=== PATIENT | male | born 1990 | race American Indian/Alaskan Native ===

== ENCOUNTER 2022-03-08 17:59 | Emergency (ER) | payer SELFPAY ==
--- NOTE | 2022-03-09 00:24 | Emergency Department Report ---
ED Head Trauma HPI - General Chief complaint: Fall Stated complaint: HIT HEAD ON CONCRETE/SEIZURE/FOAMING AT MOUTH Time Seen by Provider: 03/09/22 00:10 Source: patient Mode of arrival: Ambulatory Limitations: No Limitations - History of Present Illness Initial comments: Patient is a 31-year-old male brought in by EMS for evaluation of head injury followed by seizure-like activity. He was reportedly unloading a [employer] truck and fell backwards striking the back of his head. He has no past history of seizures. - Related Data Home Medications Medication Instructions Recorded Confirmed Last Taken No Known Home Medications [No 05/12/16 05/12/16 Unknown Reported Home Medications] Allergies/Adverse reactions: Allergies Allergy/AdvReac Type Severity Reaction Status Date / Time No Known Allergies Allergy Unverified 05/11/16 17:13 ED Review of Systems ROS: Stated complaint: HIT HEAD ON CONCRETE/SEIZURE/FOAMING AT MOUTH Other details as noted in HPI Constitutional: denies: chills, fever Respiratory: denies: cough, shortness of breath, wheezing Cardiovascular: denies: chest pain, palpitations Gastrointestinal: denies: abdominal pain, nausea, diarrhea Genitourinary: denies: urgency, dysuria Musculoskeletal: denies: back pain, joint swelling, arthralgia Skin: denies: rash, lesions Neurological: denies: headache, weakness, paresthesias Psychiatric: denies: anxiety, depression ED Past Medical Hx - Past Medical History Previous Medical History?: Yes Additional medical history: hearing loss,DEV, Delayed - Surgical History Past Surgical History?: No - Social History Smoking Status: Never Smoker Substance Use Type: None - Medications Home Medications: Home Medications Medication Instructions Recorded Confirmed Last Taken Type No Known Home Medications [No 05/12/16 05/12/16 Unknown History Reported Home Medications] ED Physical Exam - General Limitations: No Limitations General appearance: alert, in no apparent distress - Head Head exam: Present: normocephalic, other (Small area of swelling to) - Respiratory Respiratory exam: Present: normal lung sounds bilaterally. Absent: respiratory distress - Cardiovascular Cardiovascular Exam: Present: regular rate, normal rhythm, normal heart sounds - GI/Abdominal GI/Abdominal exam: Present: soft. Absent: distended, tenderness - Neurological Exam Neurological exam: Present: alert, oriented X3 - Psychiatric Psychiatric exam: Present: normal affect, normal mood - Skin Skin exam: Present: warm, dry, intact, normal color ED Course Vital Signs 03/08/22 03/09/22 03/09/22 19:09 00:00 00:09 Temperature 98.1 F Pulse Rate 67 Respiratory 20 17 Rate Blood Pressure Blood Pressure 120/74 [Right] O2 Sat by Pulse 100 98 Oximetry 03/09/22 03/09/22 03/09/22 00:16 00:30 00:46 Temperature Pulse Rate 45 L 51 L 50 L Respiratory 15 17 Rate Blood Pressure 109/65 109/65 69/32 Blood Pressure [Right] O2 Sat by Pulse 99 100 Oximetry 03/09/22 03/09/22 01:00 01:13 Temperature Pulse Rate 49 L 51 L Respiratory 16 16 Rate Blood Pressure 69/32 Blood Pressure 104/55 [Right] O2 Sat by Pulse 98 98 Oximetry - Medical Decision Making CT head and C-spine unremarkable. Suspect likely concussion. Patient is currently alert and in no acute distress. Stable for discharge home. Critical care attestation.: If time is entered above; I have spent that time in minutes in the direct care of this critically ill patient, excluding procedure time. ED Disposition Clinical Impression: Concussion, Blunt head injury Disposition: 01 HOME / SELF CARE / HOMELESS Is pt being admited?: No Condition: Stable Instructions: Head Injury, Adult, Concussion, Adult Additional Instructions: Please follow-up with your regular doctor as needed. You may return if symptoms worsen Time of Disposition: 01:52
--- NOTE | 2022-03-09 00:44 | Cat Scan Report ---
CT cervical spine wo con, CT head/brain wo con INDICATION / CLINICAL INFORMATION: Fall/head injury. TECHNIQUE: Axial coronal and sagittal images All CT scans at this location are performed using CT dose reduction for ALARA by means of automated exposure control. COMPARISON: None available. FINDINGS: Head: No acute intracranial hemorrhage. Ventricles are normal in size without midline shift or mass effect. No extra-axial fluid collection is seen. Vazquez-white matter differentiation appears normal. There is mild right sphenoid sinus mucosal thickening and disease. No definite skull fractures seen. Cervical spine: Cervical spine alignment appears normal. No prevertebral soft tissue swelling is see n. Facets appear well aligned. Odontoid appears normal. Skull base appears normal. 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 No acute findings on CT head or CT cervical spine Signer Name: Gilberto Crespo MD Signed: 03/09/2022 12:40 AM Workstation Name: [id number]
[2022-03-09 02:53] VITALS: BP 104/70
== END 2022-03-09 03:13 | disposition home or self-care (01) ==
LOC: ED 17:59
DX: S06.0X0A Concussion without loss of consciousness, initial encounter (principal); R56.9 Unspecified convulsions; X58.XXXA Exposure to other specified factors, initial encounter; Y93.89 Activity, other specified; Y92.89 Other specified places as the place of occurrence of the external cause; Y99.8 Other external cause status; Z79.899 Other long term (current) drug therapy
CPT/HCPCS: 70450; 72125; 99283